=== PATIENT | male | born 1970 | race Caucasian/White ===

== ENCOUNTER 2025-02-04 13:35 | Emergency (ER) | payer OTHER, SELFPAY ==
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
[2025-02-04 14:11] VITALS: BP 145/95; PULSE 95; RESP 18; TEMP 37.2; O2SAT 97
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
[2025-02-04 18:54] VITALS: BP 122/68; PULSE 68; RESP 18; TEMP 36.6; O2SAT 98
== END 2025-02-04 18:55 | disposition home or self-care (01) ==
LOC: SERX 18:49
PROVIDERS: Emergency Provider Family Medicine
DX: S30.0XXA Contusion of lower back and pelvis, initial encounter (principal); S01.102A Unspecified open wound of left eyelid and periocular area, initial encounter; S79.922A Unspecified injury of left thigh, initial encounter; V89.2XXA Person injured in unspecified motor-vehicle accident, traffic, initial encounter
CPT/HCPCS: 73502; 73552; 99283